=== PATIENT | female | born 1975 | race Caucasian/White ===

== ENCOUNTER 2017-11-22 06:17 | Day surgery (SDC) | payer MEDICARE, MEDICAID ==
[2017-11-22 07:20] LABS: INR 1.1
[2017-11-22] MEDS ORDERED: Lidocaine 1%/Epinephrine 1:100000 30 ml vial IJ STA (07:20)
[2017-11-22] MEDS ORDERED: ceFAZolin IV 2 gm in Dextrose 2 GM/50 ML BAG IVPB ONE (07:24)
[2017-11-22] MEDS ORDERED: ceFAZolin IV 1 gm in Dextrose 0 GM/0 ML BAG IVPB ONE (07:24)
[2017-11-22] MEDS ORDERED: Bupivacaine HCl 0.25% PF (10 ml) Inj ONE (07:24)
[2017-11-22] MEDS ORDERED: Lactated Ringer's 1,000 ML IV ONE ×2 (08:10→09:45)
[2017-11-22] MEDS ORDERED: Midazolam 2 MG/2 ML VIAL ONE (08:12)
[2017-11-22] MEDS ORDERED: Lidocaine Hydrochloride 5 ML INJ ONE ×2 (08:13→09:34)
[2017-11-22] MEDS ORDERED: Succinylcholine Chloride 20 mg/ml Syr (5 ml) IV ONE (08:13)
[2017-11-22] MEDS ORDERED: Rocuronium 10 mg/ml (5 ml) ONE ×2 (08:13→08:52)
[2017-11-22] MEDS ORDERED: Propofol 10 mg/ml Inj (20 ML) ONE (08:13)
[2017-11-22] MEDS ORDERED: Neostigmine Methylsulfate 3mg/3ml Syringe IV ONE (09:35)
--- NOTE | 2017-11-22 09:50 | PCM.SURG1 ---
Surgeon's Initial Post Op Note - Surgeon's Notes Surgeon: Dr Sanchez Customer Service Engineer: Dr Hanna PGY3, Paloma VALLEA, Dr Bellamy PGY2 Type of Anesthesia: General Endo Pre-Operative Diagnosis: cholelithiasis Operative Findings: as above Post-Operative Diagnosis: as above Operation Performed: robotic cholecystectomy w/ intraoperative indocyanin green Specimen/Specimens Removed: gallbladder Estimated Blood Loss: EBL {In ML}: 10 Blood Products Given: N/A Drains Used: No Drains Post-Op Condition: Good Date of Surgery/Procedure: 11/22/17 Time of Surgery/Procedure: 09:50
[2017-11-22] MEDS ORDERED: Oxycodone/Acetaminophen 5/325 mg Tab PO PRN (09:51)
[2017-11-22] MEDS: HYDROmorphone 0.5 mg/0.5 ml ISec IVP PRN ×2 (10:16→11:05)
[2017-11-22] MEDS ORDERED: DiphenhydrAMINE 50 mg/ml Inj ONE (11:44)
[2017-11-22] MEDS ORDERED: DiphenhydrAMINE 50 mg/ml Inj IVP STA (11:51)
[2017-11-22 13:05] VITALS: RESP 16
[2017-11-22 14:48] VITALS: BP 101/81; PULSE 60; TEMP 98; O2SAT 97
--- NOTE | 2017-11-22 21:06 | OP ---
PROCEDURE DATE: 11/22/2017 PREOPERATIVE DIAGNOSES: Chronic cholecystitis and cholelithiasis. POSTOPERATIVE DIAGNOSES: 1. Chronic cholecystitis and cholelithiasis. 2. Post-infectious adhesion. PROCEDURES DONE: 1. Robotic cholecystectomy. 2. Robotic lysis of adhesion. SURGEON: Alek Sanchez MD. ASSISTANTS: ANTONIO Gold and Kylee Bellamy, PGY-2 resident. TYPE OF ANESTHESIA: General endotracheal tube anesthesia. ESTIMATED BLOOD LOSS: Around 10 mL. DRAINS: None. PATHOLOGY: Gallbladder with gallstones was sent for the pathology. COMPLICATIONS: None. INTRAOPERATIVE FINDINGS: Patient had changes of chronic cholecystitis and cholelithiasis as well as the patient had extensive post-infectious adhesion of the duodenum and the colon to infundibulum as well as Calot's triangle, and extensive lysis of adhesion was done. DESCRIPTION OF PROCEDURE: On intraoperative steps, this 42-year-old female was diagnosed with chronic cholecystitis and cholelithiasis. The patient was consented for robotic-assisted laparoscopic cholecystectomy, possible open. Brought to the OR, placed supine on operating table. After induction of the anesthesia, abdomen was prepped and draped in the usual sterile fashion. A supraumbilical transverse incision was made. After incising the skin and subcutaneous tissue, the fascia was incised in the line of incision. Dhiraj port was placed. Pneumo was created. Another three 8-mm ports were placed in the upper abdomen. Robot was brought in. Camera arm as well as arm 1 and arm 2 were docked. Gallbladder was retracted cranially. Calot's triangle dissection was done. There was peritoneal adhesion as well as colonic adhesion in the infundibulum. The lysis of adhesion was done. The intraoperative Firefly was used to identify the ductal anatomy. The Calot's triangle dissection was done with blunt and sharp dissection. The cystic duct and cystic artery were identified and clipped at 3 places and cut in between 2 places near by gallbladder, and gallbladder was dissected free from the gallbladder fossa, taken in an EndoCatch bag, taken out through the umbilical port site and sent off the table for the pathology. There was proper hemostasis in each and every part of the procedure. All the instruments were taken out. Robot was undocked. All the ports were taken out under vision. Pneumo was deflated. Umbilical port site was closed in 2 layers, fascia with 0 Vicryl interrupted sutures, skin with 4-0 Monocryl, and dry sterile dressing was applied. Patient tolerated procedure well. Count of instrument and gauze was correct. There was no apparent complication. Alek Sanchez MD
== END 2017-11-22 13:50 | disposition home or self-care (01) ==
LOC: C.SDS 06:17
PROVIDERS: ATTEND Surgery Surgical Critical Care
DX: K80.20 Calculus of gallbladder without cholecystitis without obstruction (principal); K80.10 Calculus of gallbladder with chronic cholecystitis without obstruction
CPT/HCPCS: 36415; 47562; 85610; 85730; 88304; J0131; J0690; J1100; J1170; J1200; J2250; J2405; J2704; J2710; J3010; J7120; S2900

== ENCOUNTER 2017-12-23 08:51 | Emergency (ER) | payer MEDICARE, MEDICAID ==
[2017-12-23 09:04] VITALS: BP 119/74; PULSE 68; RESP 18; TEMP 98.7; O2SAT 98
[2017-12-23] MEDS ORDERED: Sodium Chloride 0.9% 1,000 ML IV ONE (09:32)
--- NOTE | 2017-12-23 10:02 | C.PDOC ---
History Of Present Illness 42 y/o female, with history of cholescystectomy, presents to the ER complaining of right upper quadrant pain which has been present for the past 4 days. Patient states that he was sent by his surgeon for an evaluation. Patient does not have any other complaints. Time Seen by Provider: 12/23/17 09:21 Chief Complaint (Nursing): Abdominal Pain History Per: Patient History/Exam Limitations: no limitations Onset/Duration Of Symptoms: Days Current Symptoms Are (Timing): Still Present Severity: Moderate Past Medical History Reviewed: Historical Data, Nursing Documentation, Vital Signs Vital Signs: Last Vital Signs Temp 98.7 F 12/23/17 09:03 Pulse 68 12/23/17 09:03 Resp 18 12/23/17 09:03 BP 119/74 12/23/17 09:03 Pulse Ox 98 12/23/17 12:42 - Medical History PMH: Anxiety (NO LONGER ON MEDS.), Gastritis, Gall Bladder Disease Denies: Chronic Kidney Disease Surgical History: Cholecystectomy (November 2017), Endoscopy Family History: States: No Known Family Hx - Social History Hx Alcohol Use: No Hx Substance Use: No - Immunization History Hx Tetanus Toxoid Vaccination: No Hx Influenza Vaccination: No Hx Pneumococcal Vaccination: No Review Of Systems Except As Marked, All Systems Reviewed And Found Negative. Constitutional: Negative for: Fever, Chills Gastrointestinal: Positive for: Abdominal Pain. Negative for: Nausea, Vomiting , Diarrhea Physical Exam - Physical Exam Appears: Non-toxic, No Acute Distress Skin: Normal Color, Warm Head: Atraumatic, Normacephalic Eye(s): bilateral: Normal Inspection, PERRL Ear(s): Bilateral: Normal Nose: Normal Oral Mucosa: Moist Neck: Supple Chest: Symmetrical Cardiovascular: Rhythm Regular Respiratory: Normal Breath Sounds, No Accessory Muscle Use, No Rales, No Rhonchi , No Wheezing Gastrointestinal/Abdominal: Normal Exam, Soft, Tenderness (mild RUQ tenderness) Extremity: Normal ROM Neurological/Psych: Oriented x3, Normal Speech, Normal Cognition, Normal Motor, Normal Sensation ED Course And Treatment - Laboratory Results Result Diagrams: 12/23/17 09:58 12/23/17 09:58 O2 Sat by Pulse Oximetry: 98 (RA) Pulse Ox Interpretation: Normal Medical Decision Making Medical Decision Making: Impression: RUQ Abdominal Pain Plan: --Labs --Urinalysis --US-Abdomen Patient seen and cleared by , surgeon. Disposition - Disposition Disposition: HOME/ ROUTINE Disposition Time: 12:41 Condition: STABLE Additional Instructions: follow up with your doctor. return to er with worsening symptoms or concerns Instructions: Acute Abdominal Pain (ED) Forms: [employer] (Japanese) - Clinical Impression Clinical Impression: Abdominal pain - Scribe Statement The provider has reviewed the documentation as recorded by the Kd Wu Provider Attestation: All medical record entries made by the Kd were at my direction and personally dictated by me. I have reviewed the chart and agree that the record accurately reflects my personal performance of the history, physical exam, medical decision making, and the department course for this patient. I have also personally directed, reviewed, and agree with the discharge instructions and disposition.
[2017-12-23 10:04] LABS: BASO # 0.1 K/uL (0.0-0.2); BASO % 0.7 % (0.0-2.0); EOS # 0.5 K/uL (0.0-0.7); EOS % 6.2 % (0.0-4.0); HEMOGLOBIN 12.9 g/dL (11.0-16.0); LYMPH # 2.5 K/uL (1.0-4.3); LYMPH % 29.2 % (20.0-40.0); MEAN CORPUSCULAR HEMOGLOBIN 29.5 pg (27.0-31.0); MEAN CORPUSCULAR HGB CONC 34.7 g/dL (33.0-37.0); MEAN PLATELET VOLUME 8.9 fL (7.2-11.7); MONO # 0.7 K/uL (0.0-0.8); MONO % 8.2 % (0.0-10.0); NEUT # 4.8 K/uL (1.8-7.0); NEUT % 55.7 % (50.0-75.0); RBC 4.37 Mil/uL (3.80-5.20); RED CELL DISTRIBUTION WIDTH 13.8 % (11.5-14.5); WHITE BLOOD COUNT 8.6 K/uL (4.8-10.8)
[2017-12-23 10:08] LABS: HCG,QUALITATIVE URINE NEGATIVE (NEGATIVE)
[2017-12-23 10:09] LABS: INR 1.1; PROTHROMBIN TIME 12.2 SECONDS (9.7-12.2)
[2017-12-23 10:20] LABS: ALB/GLOB RATIO 1.2 (1.0-2.1); ALBUMIN 3.6 g/dL (3.5-5.0); ALT/SGPT 29 U/L (9-52); AST/SGOT 20 U/L (14-36); BLOOD UREA NITROGEN 9 mg/dL (7-17); CALCIUM 8.3 mg/dl (8.6-10.4); GFR AFRICAN-AMERICAN > 60; GFR NON-AFRICAN AMERICAN > 60; LIPASE 56 U/L (23-300)
[2017-12-23 10:22] LABS: SQUAMOUS EPITHIAL 6 /hpf (0-5); URINE BACTERIA RARE (<OCC); URINE BILIRUBIN NEGATIVE (NEGATIVE); URINE BLOOD NEGATIVE (NEGATIVE); URINE CLARITY Clear (Clear); URINE COLOR Straw (YELLOW); URINE GLUCOSE (UA) NORMAL (Normal); URINE LEUKOCYTE ESTERASE NEG Leu/uL (Negative); URINE NITRATE NEGATIVE (NEGATIVE); URINE PROTEIN NEGATIVE (NEGATIVE); URINE UROBILINOGEN NORMAL mg/dL (0.2-1.0)
[2017-12-23 10:40] LABS: BILIRUBIN,DIRECT 0.2 mg/dL (0.0-0.4)
--- NOTE | 2017-12-23 11:28 | US ---
HISTORY: ruq pain eval cbd, h/o of cholecystectomy COMPARISON: Abdominal ultrasound performed 12/21/16 TECHNIQUE: Sonographic evaluation of the abdomen. FINDINGS: LIVER: Measures 14.6 cm in sagittal dimension. Echogenic liver may be seen in setting of hepatic parenchymal disease or fatty infiltration. No focal hepatic mass identified. The main portal vein appears patent with normal directional flow. No intrahepatic bile duct dilatation. GALLBLADDER: Cholecystectomy. COMMON BILE DUCT: Measures 5 mm. PANCREAS: Not well visualized. RIGHT KIDNEY: Measures 11.1 x 4.2 x 4.3cm. No obstructing calculus or hydronephrosis identified. LEFT KIDNEY: Measures 10.9 x 5.6 x 4.8cm. No obstructing calculus or hydronephrosis identified. SPLEEN: Measures approximately 9.9 cm. AORTA: Limited views appear unremarkable. IVC: Limited views appear unremarkable. OTHER FINDINGS: None. IMPRESSION: Cholecystectomy. Echogenic liver may be seen in setting of hepatic parenchymal disease or fatty infiltration.
== END 2017-12-23 12:50 | disposition home or self-care (01) ==
LOC: C.ER 08:51
DX: R10.9 Unspecified abdominal pain (principal); Z90.49 Acquired absence of other specified parts of digestive tract